=== PATIENT | male | born 1965 | race Caucasian/White ===

== ENCOUNTER 2016-07-08 06:13 | Inpatient (IN) | payer OTHER ==
[2016-06-16 13:02] VITALS: BMI 22.0
--- NOTE | 2016-06-16 13:42 | PAT Medication Instructions ---
Service Date June 16, 2016. Current Home Medication List Psyllium (Fiber), Unknown Dose Trazodone Hcl (Trazodone), 0.5 TAB PO HS Medication Instructions For Your Scheduled Surgery - Hold the following medications the morning of surgery: Psyllium (Fiber), Unknown Dose - Take the following medications as scheduled the night before surgery: Trazodone Hcl (Trazodone), 0.5 TAB PO HS Psyllium (Fiber), Unknown Dose If you have any questions please call us at [phone] or [phone] ( [place]) or [phone]
--- NOTE | 2016-06-16 14:28 | DIAGNOSTIC IMAGING REPORT ---
CHEST 2 VIEWS ROUTINE CLINICAL HISTORY: Preoperative chest. Renal mass. COMPARISON STUDY: No previous studies for comparison. FINDINGS: The cardiac and mediastinal contours are normal. There is no evidence of focal pulmonary consolidation. There is no evidence of failure. No pleural effusions are visualized.[ The patient is mildly hyperinflated. IMPRESSION: No active disease in the chest. Electronically signed by: Odilon Beasley M.D. 06/16/2016 2:26 PM Dictated Date/Time: 06/16/2016 2:26 PM
[2016-06-16 14:58] LABS: BASO % 0.4 %; BASO ABS # 0.04 K/uL (0-0.2); COMPLETE YES; EOS % 2.1 %; HEMATOCRIT 47.1 % (42-52); IG% 0.3 %; LYMPH % 17.2 %; LYMPH ABS # 1.55 K/uL (1.2-3.4); MEAN CORPUSCULAR HEMOGLOBIN 34.4 pg (25-34); MEAN CORPUSCULAR HGB CONC 34.4 g/dl (32-36); MEAN PLATELET VOLUME 10.3 fL (7.4-10.4); MONO % 5.9 %; NEUT % 74.1 %; PLATELET COUNT 230 K/uL (130-400); RED BLOOD COUNT 4.71 M/uL (4.7-6.1); WHITE BLOOD COUNT 9.03 K/uL (4.8-10.8)
[2016-06-16 15:08] LABS: URINE APPEARANCE CLEAR (CLEAR); URINE BILIRUBIN NEG (NEG); URINE COLOR DK YELLOW; URINE NITRITE NEG (NEG); URINE SPECIFIC GRAVITY 1.024 (1.000-1.030); UROBILINOGEN NEG (NEG)
[2016-06-16 15:22] LABS: MANUAL MICROSCOPIC REQUIRED? NO; REVIEW REQ? NO
[2016-06-16 17:19] LABS: BUN/CREATININE RATIO 15.1 (10-20); CALCIUM 9.6 mg/dl (8.5-10.1); CREATININE 0.92 mg/dl (0.60-1.40); POTASSIUM 4.7 mmol/L (3.5-5.1)
[2016-07-08] VITALS (8 sets, daily range): BP systolic 91–127; BP diastolic 61–94; PULSE 79–109; TEMP 36.4–36.9; O2SAT 90–98; Ht 185.4 cm; Wt 78.4 kg
[~2016-07-08] VITALS: Ht 185.4 cm; Wt 78.4 kg
[~2016-07-08 06:13] MED LIST: CEFAZOLIN 2000 MG/60 ML D5W IV SCH; LACTATED RINGER'S 1000ML 1,000 ML IV SCH; PSYL1CAP4; TRAZ50TA35 PO
[2016-07-08] MEDS ORDERED: HYDR25CA PO (07:33)
[2016-07-08] MEDS ORDERED: FENTANYL CITRATE INJ 50 MCG/1 ML 2 ML VIAL ONE ×2 (07:43→09:46)
[2016-07-08] MEDS ORDERED: NEOSTIGMINE METHYLSULFATE 5 MG/5 ML SYR ONE (07:43)
[2016-07-08] MEDS ORDERED: LIDOCAINE HCL 2% 2 ML VIAL (20MG/ML) ONE (07:43)
[2016-07-08] MEDS ORDERED: ONDANSETRON INJ 2 MG/ML 2 ML VIAL ONE (07:43)
[2016-07-08] MEDS ORDERED: GLYCOPYRROLATE INJ 0.2 MG/ML VIAL ONE (07:43)
[2016-07-08] MEDS ORDERED: DEXAMETHASONE SOD INJ 4 MG/ML VIAL ONE ×2 (07:43→09:10)
[2016-07-08] MEDS ORDERED: MIDAZOLAM HCL 1 MG/ML 2ML VIAL ONE (07:43)
[2016-07-08] MEDS ORDERED: ROCURONIUM BROMIDE 10 MG/ML 5 ML VIAL ONE ×2 (07:43→09:11)
[2016-07-08] MEDS ORDERED: PROPOFOL IV EMULSION 10 MG/ML 20 ML VIAL IV ONE ×2 (07:43→09:11)
[2016-07-08] MEDS ORDERED: GELATIN SPONGE SZ 100 ONE (07:45)
[2016-07-08] MEDS ORDERED: BUPIVACAINE 0.5 % 5 MG/1 ML MPF 30ML VIAL ONE (07:45)
--- NOTE | 2016-07-08 08:03 | History & Physical Bridge Note ---
H&P Re-Evaluation Bridge Note: I have examined the patient, reviewed the History & Physical and in the interval since the performance of the History & Physical I have noted the following changes of clinical significance: No changes noted
[2016-07-08] MEDS ORDERED: MEPERIDINE HCL 25 MG/ML CARP IV PRN (08:45)
[2016-07-08] MEDS ORDERED: ONDANSETRON INJ 2 MG/ML 2 ML VIAL IV PRN ×2 (08:45→10:45)
[2016-07-08] MEDS ORDERED: ATROPINE SULFATE 0.1 MG/ML 5ML SYR IV PRN (08:45)
[2016-07-08] MEDS ORDERED: EpHEDrine SULFATE INJ 50 MG/ML AMP IV PRN (08:45)
[2016-07-08] MEDS ORDERED: MoRPHine SULFATE 10 MG/ML CARP/VIAL IV PRN (08:45)
[2016-07-08] MEDS ORDERED: NALOXONE HCL 0.4 MG/1 ML VIAL/CARP IV PRN (08:45)
[2016-07-08] MEDS ORDERED: LABETALOL HCL IV 5 MG/ML 20ML IV PRN (08:45)
[2016-07-08] MEDS ORDERED: FLUMAZENIL 0.1 MG/1 ML 10 ML VIAL IV PRN (08:45)
[2016-07-08] MEDS ORDERED: PHENYLEPHRINE 100MCG/ML 5ML SYR IV PRN (08:45)
[2016-07-08] MEDS ORDERED: HYDROmorphone INJ 2 MG/ML SYR/VIAL ONE (09:03)
[2016-07-08] MEDS ORDERED: RANITIDINE HCL 25 MG/ML INJ ONE (09:10)
[2016-07-08] MEDS ORDERED: PHENYLEPHRINE 100MCG/ML 5ML SYR ONE (09:11)
[2016-07-08] MEDS ORDERED: ALBUTEROL HFA INHALER 8.5 GM INH ONE (09:19)
[2016-07-08] MEDS ORDERED: MANNITOL 25% 50 ML VIAL ONE ×2 (10:01→10:13)
[2016-07-08] MEDS ORDERED: TISSEEL FIBRIN SEALANT 10ML TOP ONE (10:22)
[2016-07-08] MEDS ORDERED: FLOSEAL HEMOSTATIC MATRIX 10ML TOP ONE (10:32)
[2016-07-08] MEDS ORDERED: HYDROmorphone INJ 1 MG/ML SYR IV PRN (10:45)
[2016-07-08] MEDS ORDERED: OXYBUTYNIN CHLORIDE 5 MG TAB PO PRN (10:45)
--- NOTE | 2016-07-08 11:06 | [facility] Post Operative Brief Note ---
Immediate Operative Summary Operative Date Jul 08, 2016. Pre-Operative Diagnosis Left Renal tumor; skin lesion Post-Operative Diagnosis Same as preop Procedure(s) Performed Left Partial Laparoscopic Nephrectomy Robot Assist; Excision of Skin Lesion Surgeon Dr. Patel Director Of Patient Financial Services Surgeon(s) Kulwant Long MD; Tran Guillermo NP Estimated Blood Loss 25 ml Findings As per dictation. Warm ischemia time: 10minutes. Specimens A. Left Renal Mass B. Fat Over Tumor C. Skin Lesion Drains DUDLEY; pablo Anesthesia Gen Complication(s) None Disposition Recovery Room / PACU (stable)
[2016-07-08] MEDS: HYDROmorphone INJ 1 MG/ML SYR IV PRN ×2 (11:25→11:30)
[2016-07-08 11:45] LABS: HEMATOCRIT 42.5 % (42-52); MEAN CELL VOLUME 99.5 fL (80-100); MEAN CORPUSCULAR HEMOGLOBIN 33.5 pg (25-34); MEAN PLATELET VOLUME 9.6 fL (7.4-10.4); PLATELET COUNT 216 K/uL (130-400); RED BLOOD COUNT 4.27 M/uL (4.7-6.1); WHITE BLOOD COUNT 11.98 K/uL (4.8-10.8)
[2016-07-08 11:49] LABS: MEAN CORPUSCULAR HGB CONC 33.6 g/dl (32-36)
[2016-07-08] MEDS ORDERED: METOPROLOL TARTRATE 1 MG/ML VIAL IV STA (12:07)
[2016-07-08 12:08] LABS: BUN/CREATININE RATIO 7.9 (10-20); CREATININE 1.1 mg/dl (0.60-1.40); POTASSIUM 4.3 mmol/L (3.5-5.1)
[2016-07-08] MEDS ORDERED: METOPROLOL TARTRATE 1 MG/ML VIAL ONE (12:08)
--- NOTE | 2016-07-08 12:41 | Anesthesiology Progress Note ---
Anesthesia Post Op Note Date & Time Jul 08, 2016 at 12:41 Vital Signs Pain Intensity: 3 Vital Signs Past 12 Hours Date Time Temp Pulse Resp B/P (MAP) Pulse Ox O2 Delivery O2 Flow Rate FiO2 07/08/16 12:35 36.6 94 20 100/70 98 Nasal Cannula 3 07/08/16 12:20 90 20 93/68 96 Nasal Cannula 3 07/08/16 12:11 110 113/80 07/08/16 12:03 110 13 07/08/16 12:03 13 07/08/16 12:02 109/81 07/08/16 11:58 106 21 94 07/08/16 11:58 106 21 07/08/16 11:57 123/79 07/08/16 11:53 101 12 07/08/16 11:53 12 07/08/16 11:51 112/87 07/08/16 11:48 100 14 89 07/08/16 11:48 100 14 07/08/16 11:47 101 13 119/82 90 07/08/16 11:47 101 13 07/08/16 11:42 99 17 124/90 91 07/08/16 11:42 99 17 07/08/16 11:37 100 13 07/08/16 11:37 100 13 136/96 92 07/08/16 11:34 133/94 07/08/16 11:32 98 19 07/08/16 11:32 97 19 138/102 92 07/08/16 11:27 91 24 164/98 96 07/08/16 11:27 91 24 07/08/16 11:25 93 20 164/98 96 Mask 10 07/08/16 11:23 154/103 07/08/16 11:22 95 16 95 07/08/16 11:22 95 16 07/08/16 11:17 93 16 07/08/16 11:17 94 16 143/102 96 07/08/16 11:15 150/103 07/08/16 11:15 92 16 143/102 97 Mask 10 07/08/16 11:12 93 17 133/107 94 07/08/16 11:12 94 17 07/08/16 11:08 154/99 07/08/16 11:07 36.4 98 20 154/99 95 Mask 10 07/08/16 07:09 36.9 79 18 127/94 96 Room Air Notes Mental Status: alert / awake / arousable, participated in evaluation Pt Amnestic to Procedure: Yes Nausea / Vomiting: adequately controlled Pain: adequately controlled Airway Patency, RR, SpO2: stable & adequate BP & HR: stable & adequate Hydration State: stable & adequate Anesthetic Complications: no major complications apparent
[2016-07-08] MEDS: ACETAMINOPHEN/CODEINE 300/30MG TAB PO PRN ×2 (13:15→21:11)
[2016-07-08] MEDS: LACTATED RINGER'S 1000ML 1,000 ML IV SCH ×2 (13:17→16:38)
--- NOTE | 2016-07-08 13:27 | OPERATIVE REPORT ---
DATE OF OPERATION: 07/08/2016 PREOPERATIVE DIAGNOSES: Left renal mass and skin lesion. POSTOPERATIVE DIAGNOSES: Left renal mass and skin lesion. PROCEDURE PERFORMED: 1. Robotic-assisted laparoscopic partial nephrectomy. 2. Excision of skin lesion. ANESTHESIA: General. PRIMARY SURGEON: Dr. Raghav Patel. JOB SETTER: Dr. Kulwant Long. SECOND JOB SETTER: Ms. Tran Guillermo. ESTIMATED BLOOD LOSS: 25 mL. URINE OUTPUT: Not recorded. SPECIMEN: 1. Left renal mass. 2. Fat over mass. 3. Skin lesion. DRAINS: 1. DUDLEY drain. 2. Hernandez catheter. DESCRIPTION OF THE PROCEDURE: Isai Hatch was identified in the preoperative holding area., appropriate informed consents were reviewed and completed and the patient was transported to the operating suite. Upon arrival, he received appropriate preoperative antibiotics in the form of Ancef and general anesthesia. He was placed in right side down, left side up lateral decubitus position where he was padded and braced in standard fashion with the bed flexed. To begin the case, we placed a Hernandez catheter followed by insufflation of the abdomen utilizing a Veress needle placed approximately 2 fingerbreadths below the costal margin on the left upper quadrant. Insufflation to 15 mmHg was carried out without difficulty. Of note, the patient had a prior diverting colostomy with reversal secondary to perforated diverticulitis. We used care to place an initial port in several centimeters away from his prior scars in the hope of avoiding adhesive reaction internally. I began this by tentatively marking my ideal port locations with a robotic port placed at approximately 1 cm lateral to that border of the rectus and 2 fingerbreadths below the costal margin. Approximately 7 to 8 cm below that, I marked in a location for a 12 mm port for the camera and approximately 7 to 8 cm below that and 2 cm laterally, I marked an additional 8 mm of robotic port. For my initial entry, I incised the skin for the 12 mm port, passed a 10 mm 0 degree lens via 12 mm Visiport. Inspection internally of the anatomy revealed very minimal adhesive disease. Other port locations were evaluated and clear of adhesions and subsequently placed under direct vision. I placed 2 additional 12 mm photo studio assistant ports, 1 in the midline approximately 3 cm above the umbilicus and another just at the rectus border, approximately 2 cm below the umbilicus. There were no difficulties with port placement. I subsequently docked the robot and began the case. I began by mobilizing the colon by incising the white line of Toldt. This medialized the colon adequately, I additionally mobilized the spleen cephalad by dissecting the plane between the upper aspect of the kidney and the inferior aspect of the spleen. As I dissected the colon medially, I was able to visualize the pulsation in the presumed area of the renal hilum and I was able to actually visualize the renal vein itself in this area. I noted insertion of the gonadal vein and I was able to trace the gonadal vein down to the inferior aspect of the kidney. The ureter was identified in this area and it was noted to be quite lateral to the gonadal vein. I dissected over the gonadal vein and onto the psoas muscle and used this to help elevate the kidney and pushed the hilum on the stretch. I was able to circumferentially dissect out the vein just lateral to the gonadal. Gonadal was spared. Immediately posterior to the vein, I noted a large renal artery with a branch that appeared to occur close to the kidney and wrap around the renal vein with an arterial branch easily visualized on the anterior surface and upper surface of the vein. I exposed the more proximal aspect of the artery, closer to the aorta hoping to be able to clamp this with a single clamp and control all branches. There were noted to be several lumbar branches protruding off both gonadal and the main renal vein. These were located medially enough to not be an issue. After my hilar dissection, I turned my attention to the renal mass. Based on the CT, I assume this to be in the mid pole lateral position. I noted a slight deformity of Gerota fascia in this area and I incised Gerota fascia several centimeters away from this to explore. I was able to get into the capsule of the kidney and circumferentially dissect around the tumor which was readily apparent on visual inspection. After clearing things appropriately, I performed a laparoscopic ultrasonographic evaluation to see the extent of the mass and the depth of invasion. This matched very closely to the preoperative hematuria via CT. We then preplaced 3-0 V-Loc stitches with Lapra-Tys and Weck clips into the abdomen. These were to be used for renorrhaphy following our excision of the mass. We then administered 12.5 grams of mannitol before placing a curved short bulldog across the renal artery. Immediately, we noted that the branch that previously appreciated wrapping anteriorly around the vein ceased to pulsate. The renal vein was noted to be quite flat and after waiting 30 seconds, we placed a long straight bulldog clamp across the renal vein. I then turned my attention to excision of the mass performing a circumferential dissection around the mass and excising en bloc. We used very careful inspection to ensure that there was no encroachment upon the mass and there was no evidence of any mass rupture or residual mass at the base of the resection. Hemostasis was excellent throughout this dissection. Then after the mass was excised, it was placed adjacent to the spleen and out of our immediate field of surgery. Utilizing a single V-Loc stitch that was previously placed, I was able to perform a closure and renorrhaphy utilizing a sliding clip technique with 3 passes in total across the defect. There was excellent apposition at that point and I removed first the renal vein clamp followed by the renal arterial clamp and saw no evidence of any active bleeding from the resection site. At that point, we bagged the specimen and placed into the lower abdomen. We placed FloSeal across the defect followed by a sprayed layer of Tisseel. I reapproximated Gerota fascia in this area using the 2nd V-Loc stitch. All needles were extracted. A final inspection was carried out of the hilum and the renal defect before placing a DUDLEY drain into the left lateral most aspect of the abdomen. I subsequently withdrew the robot and all the ports. This specimen was extracted through slight expansion of the camera port, fascia in this layer was closed with 0 Vicryl stitch in running fashion. The 12 mm photo studio assistant ports were closed with [id number] 0 Vicryl stitches through the fascia followed by 4-0 Monocryl closure of the skin. I closed all other ports with 4-0 Monocryl and dressed all with Dermabond. Of note, he additionally has a small abnormally colored lesion that has developed over the site of his prior colostomy. He has to have this excised and I made an ellipsoid skin incision around the small discolored area on the lateral most portion of the colostomy site. I dissected beneath this and excised en bloc. I then reapproximated the skin utilizing 3 vertical mattress 4-0 chromic stitches. There was good cosmetic appearance of the closure. A DUDLEY drain was sutured in place with 0 silk and the case was subsequently concluded. The patient was extubated and taken to the PACU in stable condition. Of note, warm ischemia time for this surgical case was 10 minutes. I attest to the content of the Intraoperative Record and any orders documented therein. Any exception s are noted below.
[2016-07-08] MEDS: ACETAMINOPHEN 500 MG TAB PO SCH ×3 (14:00→21:02)
[2016-07-08] MEDS: CEFAZOLIN IV 1,000 MG in DEXTROSE 5% 50ML 50 ML IV SCH (16:37)
[2016-07-08] MEDS ORDERED: HEPARIN SOD 5000 UNIT/0.5 ML CARP SQ SCH (19:00)
[2016-07-08] MEDS: DOCUSATE SODIUM 100 MG CAP PO SCH ×2 (21:00→21:01)
[2016-07-08] MEDS ORDERED: NURSING VERBAL MED ORDER ONE (21:00)
[2016-07-08] MEDS ORDERED: hydrOXYzine HCL 25 MG TAB PO SCH (21:00)
[2016-07-09] MEDS: LACTATED RINGER'S 1000ML 1,000 ML IV SCH ×2 (00:04→06:31)
[2016-07-09] MEDS: CEFAZOLIN IV 1,000 MG in DEXTROSE 5% 50ML 50 ML IV SCH ×2 (00:04→08:03)
[2016-07-09] MEDS: ACETAMINOPHEN 500 MG TAB PO SCH ×3 (01:52→12:32)
[2016-07-09 03:50] VITALS: BP 124/71; PULSE 99; TEMP 36.9; O2SAT 94
[2016-07-09 06:00] VITALS: BP 113/73; PULSE 93; TEMP 36.9; O2SAT 82
[2016-07-09 06:02] VITALS: O2SAT 94
[2016-07-09 07:32] LABS: BASO % 0.1 %; BASO ABS # 0.01 K/uL (0-0.2); COMPLETE YES; EOS % 0.3 %; HEMATOCRIT 27.1 % (42-52); IG% 0.2 %; LYMPH % 15.4 %; LYMPH ABS # 1.38 K/uL (1.2-3.4); MEAN CELL VOLUME 99.3 fL (80-100); MEAN CORPUSCULAR HEMOGLOBIN 34.4 pg (25-34); MEAN CORPUSCULAR HGB CONC 34.7 g/dl (32-36); MEAN PLATELET VOLUME 9.9 fL (7.4-10.4); MONO % 9.4 %; NEUT % 74.6 %; PLATELET COUNT 187 K/uL (130-400); RED BLOOD COUNT 2.73 M/uL (4.7-6.1); WHITE BLOOD COUNT 8.97 K/uL (4.8-10.8)
[2016-07-09 07:39] LABS: BUN/CREATININE RATIO 10.9 (10-20); CALCIUM 7.5 mg/dl (8.5-10.1); CREATININE 0.97 mg/dl (0.60-1.40); POTASSIUM 3.9 mmol/L (3.5-5.1)
[2016-07-09] MEDS: DOCUSATE SODIUM 100 MG CAP PO SCH (08:03)
--- NOTE | 2016-07-09 08:11 | Anesthesiology Progress Note ---
Anesthesia Post Op Note Date & Time Jul 09, 2016 at 08:11 Vital Signs Pain Intensity: 8.0 Vital Signs Past 12 Hours Date Time Temp Pulse Resp B/P (MAP) Pulse Ox O2 Delivery O2 Flow Rate FiO2 07/09/16 06:02 94 Nasal Cannula 2.0 07/09/16 06:00 36.9 93 18 113/73 (86) 82 Room Air 07/09/16 03:50 36.9 99 18 124/71 (88) 94 Room Air 07/09/16 00:00 Room Air 07/08/16 22:53 36.8 107 16 116/62 (80) 93 Room Air Notes Mental Status: alert / awake / arousable, participated in evaluation Pt Amnestic to Procedure: Yes Nausea / Vomiting: adequately controlled Pain: adequately controlled Airway Patency, RR, SpO2: stable & adequate BP & HR: stable & adequate Hydration State: stable & adequate Anesthetic Complications: no major complications apparent
[2016-07-09] MEDS ORDERED: XYLOCAINE 1%/SOD BICARB 20 ML VIAL INFIL ONE (09:45)
[2016-07-09] MEDS ORDERED: NICOTINE POLACRILEX 2 MG GUM MT PRN (10:15)
[2016-07-09] MEDS ORDERED: CLC100 PO (10:25)
[2016-07-09] MEDS ORDERED: ACET-749 PO (10:25)
--- NOTE | 2016-07-09 10:25 | Progress Note ---
Progress Note Date of Service Jul 09, 2016. Progress Note Pt doing ok. He has been bleeding from his drain site. Not through the drain, but around it. Drain stripped - light colored, serosanguineous. There was some old, venous blood oozing from the subcutaneous area. I suspect all of his bleeding was from the port site/muscle/skin Hernandez and DUDLEY removed - 2, vertical mattressed 2-0 Prolene stitches placed to close the port after the drain was removed. Appeared to have excellent hemostasis. We will observe for now. Check labs at 12PM - if stable, and pt continuing to feel well, we can consider d/c home.
--- NOTE | 2016-07-09 10:26 | Discharge Instructions ---
Discharge Instructions Date of Service Jul 09, 2016. Admission Reason for Admission: Kidney Mass Discharge Discharge Diagnosis / Problem: Kidney Mass Discharge Goals Goal(s): Increase independence, Diagnostic testing, Prevent Disease Progression Activity Recommendations Activity Limitations: per Instructions/Follow-up section . Instructions / Follow-Up Instructions / Follow-Up 1. Do not lift >15lbs x 6 weeks. 2. No heavy exercise x 6 weeks. You may engage in light activity such as walking and stairs as tolerated. 3. Do not drive x [address] while taking narcotics. 4. Follow-up as scheduled. Please call our office at [phone] if you need to reschedule for any reason. . Current Hospital Diet Hospital Diet(s): Regular Diet Discharge Diet Recommended Diet: Regular Diet Procedures Procedures Performed: Left Partial Laparoscopic Nephrectomy Robot Assist; Excision of Skin Lesion Pending Studies Studies pending at discharge: no Medical Emergencies . Who to Call and When: Medical Emergencies: If at any time you feel your situation is an emergency, please call 911 immediately. . Non-Emergent Contact Non-Emergency issues call your: Urologist Call Non-Emergent contact if: temperature is above 101.5 . . "Provider Documentation" section prepared by Valerie Padgett. . VTE Core Measure Inpt VTE Proph given/why not?: Unfractionated heparin SQ, SCD's [place] Drug Monitoring Program Search Results: no issues identified
[2016-07-09] MEDS: ACETAMINOPHEN/CODEINE 300/30MG TAB PO PRN (12:06)
[2016-07-09 12:23] LABS: HEMATOCRIT 25.6 % (42-52)
[2016-07-09 12:37] VITALS: BP 111/68; PULSE 93; TEMP 36.8; O2SAT 83; O2SAT 92
[2016-07-09 14:00] VITALS: BP 111/68; PULSE 93; TEMP 36.8; O2SAT 92
[2016-07-10] MEDS ORDERED: NICOTINE 21 MG/24 HR TDSY TD SCH (09:00)
--- NOTE | 2016-07-10 09:51 | Discharge Summary ---
Discharge Summary Date of Service Jul 10, 2016. Discharge Summary Admission Date: Jul 08, 2016 at 10:48 Discharge Date: Jul 09, 2016 Discharge Disposition: Home Principal Diagnosis: L renal mass Procedures: Left robotic assisted lap partial nephrectomy Medication Reconciliation New Medications: Acetaminophen/Codeine (Tylenol W/Codeine #3) 300 Mg/30 Mg Tab 1-2 TAB PO Q4H PRN for Pain for 10 Days, #25 TAB Docusate Sodium (Docusate Sodium) 100 Mg Cap 100 MG PO BID for Constipation for 30 Days, #60 CAP Continued Medications: Hydroxyzine Pamoate (Vistaril) 25 Mg Cap 1 CAP PO HS for 30 Days, CAP 1 Refill Psyllium (Fiber) Unknown Strength Cap Unknown Dose takes 1 cap Q AM Hospital Course Admitted for L partial nephrectomy. Details of the procedure as dictated previously in the operative report. He progressed well overnight, but had some bleeding from the drain site/port. On close inspection, it appeared there was a subcutaneous vein that was oozing in this area. I removed his drain and sutured the port site closed, ligating the vessel in the process of this closure. Before removal the drain output remained serosanguineous and appropriate. Aside from a drop in hct secondary to his port site bleeding, his labs were appropriate. He passed a voiding trial and was in stable condition for discharge home on the afternoon of POD#1. Total time spent on discharge = This includes examination of the patient, discharge planning, medication reconciliation, and communication with other providers. Discharge Instructions as per previously written d/c instructions
--- NOTE | 2016-07-12 08:23 | EDITING REQUIRED CODING QUERY ---
CLEAR CELL RENAL CELL CARCINOMA PATHOLOGY To promote full compliance with coding requirements relating to patient care, physician participation is requested in all cases of joy operator uncertainty. Please assist us with the question(s) below: Dr. Patel, Please review the Pathology report and please document any relevant diagnosis(es) below: Diagnosis(es): Thank you for your time, KRISHNA Schmitt, ASSOCIATE DIRECTOR QA
== END 2016-07-09 14:30 | disposition home or self-care (01) | DRG 657 ==
LOC: C.ACU 06:13 → C.MSN 10:48 → ENRESERV 11:51
PROVIDERS: ADMIT Urology; ATTEND Urology
PROC: 0HB7XZX Excision of Abdomen Skin, External Approach, Diagnostic (ICD-10-PCS; principal; 2016-07-08 08:15)
PROC: 0TB14ZZ Excision of Left Kidney, Percutaneous Endoscopic Approach (ICD-10-PCS; principal; 2016-07-08 08:15)
PROC: 0HQ7XZZ Repair Abdomen Skin, External Approach (ICD-10-PCS; principal; 2016-07-08 08:15)
DX: C64.2 Malignant neoplasm of left kidney, except renal pelvis (principal); L76.22 Postprocedural hemorrhage of skin and subcutaneous tissue following other procedure; L98.9 Disorder of the skin and subcutaneous tissue, unspecified; Y83.6 Removal of other organ (partial) (total) as the cause of abnormal reaction of the patient, or of later complication, without mention of misadventure at the time of the procedure; Y92.239 Unspecified place in hospital as the place of occurrence of the external cause; R00.2 Palpitations; F17.210 Nicotine dependence, cigarettes, uncomplicated; G47.30 Sleep apnea, unspecified; Z87.09 Personal history of other diseases of the respiratory system; Z80.9 Family history of malignant neoplasm, unspecified; Z79.899 Other long term (current) drug therapy

== ENCOUNTER → 2016-07-12 | Outpatient (CLI) | payer OTHER ==
[~2016-07-12] MED LIST changes: +ACET-749 PO; -CEFAZOLIN 2000 MG/60 ML D5W IV SCH; +CLC100 PO; +HYDR25CA PO; -LACTATED RINGER'S 1000ML 1,000 ML IV SCH; -TRAZ50TA35 PO
[2016-07-12 13:52] LABS: BASO % 0.5 %; BASO ABS # 0.04 K/uL (0-0.2); COMPLETE YES; EOS % 5.9 %; HEMATOCRIT 30.1 % (42-52); IG% 0.2 %; LYMPH % 16.4 %; LYMPH ABS # 1.34 K/uL (1.2-3.4); MEAN CELL VOLUME 99.7 fL (80-100); MEAN CORPUSCULAR HEMOGLOBIN 33.8 pg (25-34); MEAN CORPUSCULAR HGB CONC 33.9 g/dl (32-36); MEAN PLATELET VOLUME 10.3 fL (7.4-10.4); PLATELET COUNT 251 K/uL (130-400); RED BLOOD COUNT 3.02 M/uL (4.7-6.1); WHITE BLOOD COUNT 8.17 K/uL (4.8-10.8)
== END | disposition home or self-care (01) ==
LOC: C.LABPBG 10:57
PROVIDERS: ATTEND Nurse Practitioner Family
DX: N28.89 Other specified disorders of kidney and ureter (principal)

== ENCOUNTER → 2016-07-16 | Outpatient (CLI) | payer OTHER | END | disposition home or self-care (01) | LOC: C.LABPBG 13:29 | PROVIDERS: ATTEND Urology | DX: N39.0 Urinary tract infection, site not specified (principal) ==